=== PATIENT | female | born 1955 ===

== ENCOUNTER → 2018-09-09 | Outpatient (CLI) | payer BC ==
[~2018-09-09] MED LIST: CALCIUM PO; CONEST.625 PO; ESTMEDA PO; ESTRTP VAG; FISH1000 PO; MULVITA PO
== END | disposition home or self-care (01) ==
LOC: LAB SHORT 09:38 → PLD 09:38
DX: L82.0 Inflamed seborrheic keratosis (principal)
CPT/HCPCS: 88305

== ENCOUNTER 2021-09-13 10:20 | Day surgery (SDC) | payer OTHER ==
[~2021-09-13] VITALS: Ht 162.6 cm; Wt 76.7 kg
--- NOTE | 2021-09-13 10:49 | NUR ---
09/13/21 1049 Radha Gonzalez 1 TRY RIGHT HAND BLEW 2 TRY RIGHT WRIST BLEW
== END 2021-09-13 12:10 | disposition home or self-care (01) ==
LOC: ORSCSDS 10:20
PROVIDERS: Internal Medicine Gastroenterology
PROC: 0DBL8ZX Excision of Transverse Colon, Via Natural or Artificial Opening Endoscopic, Diagnostic (ICD-10-PCS; principal; 2021-09-13 11:30)
DX: Z12.11 Encounter for screening for malignant neoplasm of colon (principal); Z86.010 Personal history of colon polyps; D12.3 Benign neoplasm of transverse colon; Z83.71 Family history of colonic polyps; K64.4 Residual hemorrhoidal skin tags
CPT/HCPCS: 88305; J2704; J7120

== ENCOUNTER → 2022-08-01 | Outpatient (CLI) | payer OTHER | LOC: PLD 15:12 → LAB SHORT 15:12 | DX: D48.5 Neoplasm of uncertain behavior of skin (principal) | CPT/HCPCS: 88305 ==

== ENCOUNTER → 2023-03-25 | Outpatient (CLI) | payer OTHER | END | disposition home or self-care (01) | LOC: LAB SHORT 14:55 → PLD 14:55 | DX: D48.5 Neoplasm of uncertain behavior of skin (principal) | CPT/HCPCS: 88304 ==